=== PATIENT | male | born 1990 | race Caucasian/White ===

== ENCOUNTER 2016-09-25 21:05 | Emergency (ER) | payer OTHER ==
--- NOTE | 2016-09-25 21:29 | PD ---
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 The exposure patient states that he was adjusting an ET tube when blood splattered up onto his chest and arms. He states that he had just picked a scab on his left antecubital fossa prior. He is concerned that this is a potential for blood exposure/HIV. The source patient is a concern for potential hepatitis and/or HIV. The exposure patient denies history of HIV or hepatitis. He states that he is immunized against hepatitis B. He is up-to- date with his tetanus. He washed his arm after the code. He denies any other exposures. PFSH Past Medical History Medical History: Denies Significant Hx Diminished Hearing: No Immunizations Current: Yes Tetanus Vaccination: < 5 Years Past Surgical History Surgical History: No Previous Surgery Social History Alcohol Use: Yes (socially) Tobacco Use: No Substance Use: No Allergies-Medications (Allergen,Severity, Reaction): Coded Allergies: No Known Allergies (Verified , 08/06/13) Reported Meds & Prescriptions Reported Meds & Active Scripts Active No Active Prescriptions or Reported Medications Review of Systems Except as stated in HPI: all other systems reviewed are Neg Physical Exam Narrative GENERAL: This is a well-nourished, well-developed patient, in no apparent distress. SKIN: No rashes, ecchymoses or lesions. Warm and dry. HEAD: Atraumatic. Normocephalic. EYES: PERRL, EOMI, no discharge or injection. No scleral icterus. EARS: Clear NOSE: Nasal turbinates appear normal. THROAT: Mucosa pink and moist. Airway patent. NECK: Trachea midline. supple, moves head freely. LUNGS: Clear to auscultation. CV: Regular in rhythm. ABDOMEN: Soft nontender. EXT: No clubbing cyanosis or edema. MDM Medical Decision Making Medical Screen Exam Complete: Yes Emergency Medical Condition: Yes Medical Record Reviewed: Yes Differential Diagnosis Differential diagnoses: Needle stick, blood exposure, hepatitis, HIV Narrative Course The patient's exposure is doubtful. The patient did wash his arm after the code. There is no active bleeding at the time on his arm. We will run a rapid HIV on the source patient. We will need to get lab to run a specimen. Post exposure prophylaxis is not indicated at this time. Patient will have his blood drawn under the exposure protocol. The patient will be notified by the charge nurse of the source patient's HIV results. Diagnosis Primary Impression: Employee exposure to blood Additional Instructions: Rest. Follow-up with employee med. Local wound care with soap and water. Med/Other Pt SpecificInfo: Wound Care Scripts No Active Prescriptions or Reported Meds Disposition: 01 DISCHARGE HOME Condition: Mina Presley September 25, 2016 21:29
== END 2016-09-25 22:44 | disposition home or self-care (01) ==
LOC: NEPK 21:05
DX: Z77.21 Contact with and (suspected) exposure to potentially hazardous body fluids (principal)
CPT/HCPCS: 99282